=== PATIENT | female | born 1985 | race Caucasian/White ===

== ENCOUNTER 2016-03-23 15:22 | Emergency (ER) | payer BC, OTHER ==
[2016-03-23 15:49] VITALS: BP 120/61
[2016-03-23] MEDS ORDERED: Ketorolac INJ* 60 MG/2 ML VIAL IM ONE (16:03)
--- NOTE | 2016-03-23 16:03 | UC ---
Shoulder Pain HPI - HPI Summary HPI Summary: neck and shoulder feel tight radiating around to head causing a head ache - History of Current Complaint Chief Complaint: UCUpperExtremity Stated Complaint: NECK & SHOULDER PAIN Time Seen by Provider: 03/23/16 15:53 Hx Obtained From: Patient Hx Last Menstrual Period: 2 WEEKS AGO ?: No Onset/Duration: Lasting Days - 3 days ago, Still Present Timing: Constant Severity Initially: Moderate Severity Currently: Moderate Location Of Pain: Is Discrete @ - as described Pain Intensity: 7 Pain Scale Used: 0-10 Numeric Character: Spasmodic, Stiffness Aggravating Factor(s): Movement Alleviating Factor(s): Nothing Associated Signs And Symptoms: Positive: Negative - Allergies/Home Medications Allergies/Adverse Reactions: Allergies Allergy/AdvReac Type Severity Reaction Status Date / Time No Known Allergies Allergy Verified 03/23/16 15:49 PMH/Surg Hx/FS Hx/Imm Hx Previously Healthy: Yes Endocrine History Of: Denies: Diabetes, Thyroid Disease, Hyperthyroidism, Hypothyroidism, Dyslipidemia Cardiovascular History Of: Denies: Cardiac Disorders, Hypertension, Pacemaker/ICD, Myocardial Infarction , Congestive Heart Failure, Atrial Fibrillation, Deep Vein Thrombosis, Bleeding Disorders Respiratory History Of: Denies: COPD, Asthma, Bronchitis, Pneumonia, Pulmonary Embolism GI/ History Of: Denies: Gastroesophageal Reflux, Ulcer, Gastrointestinal Bleed, Gall Bladder Disease, Kidney Stones, Diverticulitis, Renal Disease, Urosepsis Neurological History Of: Denies: TIA, CVA, Dementia, Seizures, Migraine Psychological History Of: Denies: Anxiety, Depression, Bipolar Disorder, Schizophrenia, Post Traumatic Stress Disorder Cancer History Of: Denies: Lung Cancer, Colorectal Cancer, Breast Cancer, Prostate Cancer, Cervical Cancer Other History Of: Negative For: HIV, Hepatitis B, Hepatitis C, Anticoagulant Therapy - Surgical History Surgical History: Yes Surgery Procedure, Year, and Place: , tubal ligation - Family History Known Family History: Positive: None Negative: Cardiac Disease, Hypertension, Diabetes, Renal Disease Family History: no reported medical issues in family lineage - Social History 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 [employer] Lives: With Family Alcohol Use: Occasionally Substance Use Type: None Smoking Status (MU): Never Smoked Tobacco Review of Systems Constitutional: Negative Skin: Negative Eyes: Negative ENT: Negative Respiratory: Negative Cardiovascular: Negative Gastrointestinal: Negative Genitourinary: Negative Motor: Other - muscle tightness in neck and shoulders Neurovascular: Negative Musculoskeletal: Myalgia - neck and shoulders Neurological: Headache Psychological: Negative All Other Systems Reviewed And Are Negative: Yes Physical Exam Triage Information Reviewed: Yes Appearance: Well-Appearing, No Pain Distress, Well-Nourished Vital Signs: Initial Vital Signs Temp 97.8 F 03/23/16 15:45 Pulse 62 03/23/16 15:45 Resp 16 03/23/16 15:45 BP 120/61 03/23/16 15:45 Pulse Ox 100 03/23/16 15:45 Vital Signs Reviewed: Yes Eye Exam: Normal Eyes: Positive: Conjunctiva Clear ENT Exam: Normal ENT: Positive: Normal ENT inspection, Hearing grossly normal, Pharynx normal, TMs normal. Negative: Nasal congestion, Nasal drainage, Trismus, Muffled/ hoarse voice Dental Exam: Normal Neck exam: Normal Neck: Positive: Supple, No Lymphadenopathy, Tenderness @ - muscle Respiratory Exam: Normal Respiratory: Positive: Chest non-tender, Lungs clear, Normal breath sounds, No respiratory distress, No accessory muscle use Cardiovascular Exam: Normal Cardiovascular: Positive: RRR, No Murmur, Pulses Normal, Brisk Capillary Refill Abdominal Exam: Normal Abdomen Description: Positive: Nontender, No Organomegaly, Soft Bowel Sounds: Positive: Present Musculoskeletal Exam: Normal Musculoskeletal: Positive: Strength Intact, No Edema, ROM Limited @ - limited in neck Neurological Exam: Normal Neurological: Positive: Alert, Muscle Tone Normal Psychological Exam: Normal Skin Exam: Normal Re-Evaluation - Re-Evaluation First Eval Change: Improved - decreased pain and increased ROM in neck Shoulder Course/Dx - Course Assessment/Plan: antiinflammatories, muscle relaxers, neck exercise follow with pcp re-check prn - Differential Dx/Diagnosis Differential Diagnosis/HQI/PQRI: Contusion, Sprain, Strain Provider Diagnoses: tension headache, cervical muscle spasm Discharge - Discharge Plan Condition: Stable Disposition: HOME Prescriptions: Cyclobenzaprine TAB* [Flexeril TAB*] 10 mg PO TID PRN #15 tab PRN Reason: muscle spasm Naproxen [Naproxen 500 MG TABS] 500 mg PO BID PRN #20 tab PRN Reason: pain Patient Education Materials: Muscle Strain (ED), Tension Headache (ED), Neck Exercises (GEN), Acute Neck Pain (ED) Referrals: COMPA Zapata [Primary Care Provider] - If Needed
== END 2016-03-23 16:39 | disposition home or self-care (01) ==
LOC: UCEAST 15:22
DX: G44.209 Tension-type headache, unspecified, not intractable (principal); M62.838 Other muscle spasm
CPT/HCPCS: 96372; 99212; G0463; J1885

== ENCOUNTER 2018-07-11 11:02 | Emergency (ER) | payer BC, OTHER ==
[2018-07-11 11:32] VITALS: BP 114/76
--- NOTE | 2018-07-11 12:24 | UC ---
Respiratory Complaint HPI - HPI Summary HPI Summary: 5 DAYS OF COUGH, NASAL CONGESTION AND CHEST CONGESTION. STATES SHE HAD SUBJECTIVE FEVER AND CHILLS A FEW DAYS AGO BUT THESE SYMPTOMS HAVE NOW RESOLVED. DENIES SORE THROAT OR EAR PAIN. NO WHEEZE OR SOB. STATES SHE TOOK SOME OTC COLD AND SINUS MEDICATION AND FEELS BETTER TODAY. - History of Current Complaint Chief Complaint: UCRespiratory Stated Complaint: SINUS ISSUE CHEST CONGESTION Time Seen by Provider: 07/11/18 12:20 Hx Obtained From: Patient Hx Last Menstrual Period: 07/05/18 Onset/Duration: Gradual Onset, Lasting Days, Still Present Timing: Constant Severity Initially: Moderate Severity Currently: Mild Pain Intensity: 2 Pain Scale Used: 0-10 Numeric Character: Cough: Nonproductive Aggravating Factors: Nothing Alleviating Factors: Nothing Associated Signs And Symptoms: Positive: URI, Nasal Congestion. Negative: Dyspnea, Wheezing - Allergies/Home Medications Allergies/Adverse Reactions: Allergies Allergy/AdvReac Type Severity Reaction Status Date / Time No Known Allergies Allergy Verified 03/23/16 15:49 PMH/Surg Hx/FS Hx/Imm Hx Previously Healthy: Yes Other History Of: Negative For: HIV, Hepatitis B, Hepatitis C, Anticoagulant Therapy - Surgical History Surgical History: Yes Surgery Procedure, Year, and Place: , tubal ligation - Family History Known Family History: Positive: None Negative: Cardiac Disease, Hypertension, Diabetes, Renal Disease Family History: no reported medical issues in family lineage - Social History Alcohol Use: Weekly Substance Use Type: None Smoking Status (MU): Never Smoked Tobacco Review of Systems All Other Systems Reviewed And Are Negative: Yes Constitutional: Positive: Fever - RESOLVED, Chills - RESOLVED, Fatigue ENT: Positive: Nasal Discharge Respiratory: Positive: Cough Cardiovascular: Positive: Negative Gastrointestinal: Positive: Negative Physical Exam Triage Information Reviewed: Yes Appearance: Well-Appearing, No Pain Distress, Well-Nourished Vital Signs: Initial Vital Signs Temp 98.0 F 07/11/18 11:28 Pulse 76 07/11/18 11:28 Resp 18 07/11/18 11:28 BP 114/76 07/11/18 11:28 Pulse Ox 100 07/11/18 11:28 Vital Signs Reviewed: Yes Eyes: Positive: Conjunctiva Clear ENT: Positive: Hearing grossly normal, Pharynx normal, TMs normal Neck: Positive: Supple, Nontender, No Lymphadenopathy Respiratory Exam: Normal Cardiovascular Exam: Normal Abdomen Description: Positive: Soft Musculoskeletal: Positive: No Edema Neurological: Positive: Alert Psychological: Positive: Age Appropriate Behavior Skin: Negative: Rashes Respiratory Course/Dx - Differential Dx/Diagnosis Provider Diagnosis: Acute URI Discharge - Sign-Out/Discharge Documenting (check all that apply): Patient Departure All imaging exams completed and their final reports reviewed: No Studies - Discharge Plan Condition: Stable Disposition: HOME Patient Education Materials: Upper Respiratory Infection (ED) Referrals: Thaddeus Bucio DO [Primary Care Provider] - If Needed Additional Instructions: YOUR SYMPTOMS ARE LIKELY VIRALLY MEDIATED AND SHOULD RESOLVE ON THEIR OWN WITH TIME. NO INDICATION FOR ANTIBIOTICS AT PRESENT. REST, HYDRATE, OTC MEDS NEEDED. SEEK FOLLOW-UP IF YOU ARE NOT IMPROVING OVER THE NEXT 1-2 WEEKS. USE OTC AFRIN FOR NASAL CONGESTION. 2 SPRAYS IN EACH NOSTRIL TWICE DAILY NEEDED. DO NOT USE FOR MORE THAN 3-4 DAYS IN A ROW TO PREVENT DEVELOPING REBOUND CONGESTION. - Billing Disposition and Condition Condition: STABLE Disposition: Home
== END 2018-07-11 12:30 | disposition home or self-care (01) ==
LOC: UCEAST 11:02
DX: J06.9 Acute upper respiratory infection, unspecified (principal)
CPT/HCPCS: 99211; G0463

== ENCOUNTER 2018-07-19 19:19 | Emergency (ER) | payer OTHER ==
--- NOTE | 2018-07-19 19:54 | UC ---
Complaint Female HPI - HPI Summary HPI Summary: 33 yo female presents with low back pain, lower abdominal pain, and dysuria. She tells me that about 3 days ago she had urinary pressure and frequency, but went away later that day so she did not think much of it. Today she was at work and developed some mild low back pain worse on the left that has significantly increased in severity since that time. Later in the day today she developed nausea and lower abdominal pain. She also complains of a cough for the last week - she was seen here about a week ago for her cough and told that it was likely a cold. She took a tylenol cold medicine this morning. She is eating and drinking, but states has no appetite. Denies fever, chills, SOB, chest pain, vomiting, diarrhea, hematuria. No hx of kidney stones. - History Of Current Complaint Stated Complaint: BACK PAIN Time Seen by Provider: 07/19/18 19:53 Hx Obtained From: Patient Hx Last Menstrual Period: 07/05/18 Onset/Duration: Sudden Onset Timing: Constant Severity Initially: Moderate Severity Currently: Severe Pain Intensity: 9 Pain Scale Used: 0-10 Numeric - Allergies/Home Medications Allergies/Adverse Reactions: Allergies Allergy/AdvReac Type Severity Reaction Status Date / Time No Known Allergies Allergy Verified 03/23/16 15:49 PMH/Surg Hx/FS Hx/Imm Hx - Additional Past Medical History Additional PMH: None Other History Of: Negative For: HIV, Hepatitis B, Hepatitis C, Anticoagulant Therapy - Surgical History Surgical History: Yes Surgery Procedure, Year, and Place: , tubal ligation - Family History Known Family History: Positive: None Negative: Cardiac Disease, Hypertension, Diabetes, Renal Disease Family History: no reported medical issues in family lineage - Social History Occupation: Employed Full-time Lives: With Family Alcohol Use: Weekly Substance Use Type: None Smoking Status (MU): Never Smoked Tobacco Review of Systems All Other Systems Reviewed And Are Negative: Yes Constitutional: Positive: Negative Skin: Positive: Negative Respiratory: Positive: Negative Cardiovascular: Positive: Negative Gastrointestinal: Positive: Abdominal Pain, Nausea Genitourinary: Positive: Dysuria, Other - Flank pain Neurovascular: Positive: Negative Neurological: Positive: Negative Psychological: Positive: Negative Physical Exam - Summary Physical Exam Summary: GENERAL: WDWN. Tearful. Moderate pain distress due to left flank pain. SKIN: No rashes, sores, lesions, or open wounds. NECK: Supple. Nontender. No lymphadenopathy. CHEST: CTAB. No r/r/w. No accessory muscle use. Breathing comfortably and in no distress. CV: RRR. Without m/r/g. Pulses intact. Cap refill <2seconds ABDOMEN: Soft. NTTP. No distention or guarding. Mild LEFT CVA tenderness. Bowel sounds present NEURO: Alert. PSYCH: Age appropriate behavior. Triage Information Reviewed: Yes Vital Signs: Vital Signs: Temp Pulse Resp BP Pulse Ox 99.6 F 96 18 159/84 98 07/19/18 19:54 07/19/18 19:54 07/19/18 19:54 07/19/18 19:54 07/19/18 19:54 Laboratory Tests 07/19/18 19:53 POC Urine Color Brown POC Urine Clarity Cloudy POC Urine pH 7.0 POC Ur Specif [place] 1.015 POC Urine Protein 3+ A POC Ur Glucose (UA) Negative POC Urine Ketones Negative POC Urine Blood 3+ A POC Urine Nitrite Negative POC Urine Bilirubin Negative POC Urine Urobilinogen 0.2 POC U Leukocyte Esteras 1+ A Vital Signs Reviewed: Yes Re-Evaluation - Re-Evaluation First Eval Re-Evaluation Time: 21:31 Change: Improved Comment: Discussed results. Pain significantly improved s/p toradol. 05/20 Complaint Female Dx - Course Course Of Treatment: UA - urine with faint red hue and positive for protein, blood, and leuks. Given degree of pain and exam suspect renal calculi and/or UTI vs pyelo. Pt drove herself here and says she cannnot/will not call for a ride home - therefore will avoid narcotic pain medication at this visit. She was given toradol IM and zofran in the clinic. CT: IMPRESSION: 1. Right nephrolithiasis with a single punctate nonobstructing right renal stone. No ureteral calculi or hydronephrosis. 2. Otherwise, no acute findings. Assessment of solid organs limited by lack of IV contrast. CXR: No radiologist reading after 1800, therefore wet read by myself is negative for PNA. Pt had significant improvement of her pain s/p toradol. Discussed results with pt. Will rx for norco for pain and keflex for potential infection, although I do not have a high suspicion for infectious process at this time. Advised to f/ u with Urology for recheck in 1-2 weeks. - Differential Dx/Diagnosis Provider Diagnosis: Renal calculi Discharge - Sign-Out/Discharge Documenting (check all that apply): Patient Departure All imaging exams completed and their final reports reviewed: No - Discharge Plan Condition: Stable Disposition: HOME Prescriptions: Cephalexin CAP* [Keflex CAP*] 500 mg PO BID #10 cap HYDROcodone/ACETAMIN 5-325 MG* [[place] 5-325 TAB*] 1 tab PO Q8H PRN #9 tab MDD 3 PRN Reason: Pain Patient Education Materials: Kidney Stones (ED), Flank Pain (ED) Referrals: Thaddeus Bucio DO [Primary Care Provider] - Jd Kwon MD [Medical Doctor] - As Soon As Possible Additional Instructions: If you develop a fever, shortness of breath, chest pain, new or worsening symptoms - please call your PCP or go to the ED immediately. Your blood pressure was high at todays visit. Please see your primary provider within 4 weeks for recheck and re-evaluation. 1) Please call Urology at the number below to schedule a follow up appointment in 1-2 weeks for a recheck of your kidney stone - Billing Disposition and Condition Condition: STABLE Disposition: Home
[2018-07-19 19:56] VITALS: BP 159/84
[2018-07-19] MEDS ORDERED: Ketorolac INJ* 60 MG/2 ML VIAL IM ONE (19:58)
[2018-07-19] MEDS ORDERED: Ondansetron ODT TAB* 4 MG SL ONE (19:58)
[2018-07-19] MEDS ORDERED: HYDROcodone/ACETAMIN 5-325 MG* 1 TAB PO ONE (21:29)
--- NOTE | 2018-07-20 10:13 | UC ---
- Progress Note Progress Note: CXR: IMPRESSION: NO EVIDENCE FOR ACTIVE CARDIOPULMONARY DISEASE. No change in plan of care Course/Dx - Diagnoses Provider Diagnoses: Renal calculi Discharge - Sign-Out/Discharge Documenting (check all that apply): Post-Discharge Follow Up All imaging exams completed and their final reports reviewed: Yes - Discharge Plan Condition: Stable Disposition: HOME Prescriptions: Cephalexin CAP* [Keflex CAP*] 500 mg PO BID #10 cap HYDROcodone/ACETAMIN 5-325 MG* [[place] 5-325 TAB*] 1 tab PO Q8H PRN #9 tab MDD 3 PRN Reason: Pain Patient Education Materials: Kidney Stones (ED), Flank Pain (ED) Referrals: Thaddeus Bucio DO [Primary Care Provider] - Jd Kwon MD [Medical Doctor] - As Soon As Possible Additional Instructions: If you develop a fever, shortness of breath, chest pain, new or worsening symptoms - please call your PCP or go to the ED immediately. Your blood pressure was high at todays visit. Please see your primary provider within 4 weeks for recheck and re-evaluation. 1) Please call Urology at the number below to schedule a follow up appointment in 1-2 weeks for a recheck of your kidney stone - Billing Disposition and Condition Condition: STABLE Disposition: Home
--- NOTE | 2018-07-21 15:15 | UC ---
- Progress Note Progress Note: Please call pt and ask how she is feeling. If urinary symptoms and pain are improved - no change If still having symptoms - will change her anbx to Cipro Please make sure she has f/u with Urology Course/Dx - Diagnoses Provider Diagnoses: Renal calculi Discharge - Sign-Out/Discharge Documenting (check all that apply): Post-Discharge Follow Up All imaging exams completed and their final reports reviewed: Yes - Discharge Plan Condition: Stable Disposition: HOME Prescriptions: Cephalexin CAP* [Keflex CAP*] 500 mg PO BID #10 cap HYDROcodone/ACETAMIN 5-325 MG* [[place] 5-325 TAB*] 1 tab PO Q8H PRN #9 tab MDD 3 PRN Reason: Pain Patient Education Materials: Kidney Stones (ED), Flank Pain (ED) Referrals: Thaddeus Bucio DO [Primary Care Provider] - Jd Kwon MD [Medical Doctor] - As Soon As Possible Additional Instructions: If you develop a fever, shortness of breath, chest pain, new or worsening symptoms - please call your PCP or go to the ED immediately. Your blood pressure was high at todays visit. Please see your primary provider within 4 weeks for recheck and re-evaluation. 1) Please call Urology at the number below to schedule a follow up appointment in 1-2 weeks for a recheck of your kidney stone - Billing Disposition and Condition Condition: STABLE Disposition: Home
== END 2018-07-19 21:49 | disposition home or self-care (01) ==
LOC: UCEAST 19:19
DX: N20.0 Calculus of kidney (principal)
CPT/HCPCS: 71046; 74176; 81003; 87077; 87086; 96372; 99212; A9270-GY; G0463; J1885